=== PATIENT | male | born 2000 | race Caucasian/White ===

== ENCOUNTER 2022-06-12 12:45 | Outpatient (CLI) | payer OTHER | END 2022-06-12 12:46 | disposition home or self-care (01) | LOC: CSHLAB 12:45 | PROVIDERS: ATTEND Podiatrist Foot & Ankle Surgery | DX: Z20.822 Contact with and (suspected) exposure to COVID-19 (principal); M19.071 Primary osteoarthritis, right ankle and foot | CPT/HCPCS: 87811 ==

== ENCOUNTER 2022-06-15 12:06 | Day surgery (SDC) | payer OTHER ==
[2022-06-13 10:49] VITALS: BMI 28.1
[~2022-06-15 12:06] MED LIST: Bupivacaine PF 0.5% 30 ML VIAL ONE; Neomycin-Polymyxin 1 ML AMP ONE
[2022-06-15] MEDS ORDERED: Lidocaine 1% PF 5 ML VIAL ONE (12:56)
[2022-06-15] MEDS ORDERED: PROPOFOL 20 ML ONE (12:56)
[2022-06-15] MEDS ORDERED: Fentanyl 250 MCG/5 ML VIAL ONE (13:54)
[2022-06-15] MEDS ORDERED: CEFAZOLIN 2 GM VIAL ONE (13:58)
[2022-06-15] MEDS ORDERED: Ondansetron PF 4 MG/2 ML Vial ONE (14:30)
[2022-06-15] MEDS ORDERED: Dexamethasone 4 mg/ml Vial ONE (14:30)
[2022-06-15] MEDS ORDERED: ePHEDrine Sulfate 50 MG/10 ML VIAL ONE (14:40)
== END 2022-06-15 16:10 | disposition home or self-care (01) ==
LOC: CSHSDC 12:06
PROVIDERS: ATTEND Podiatrist Foot & Ankle Surgery
PROC: 0SGP0JZ Fusion of Right Toe Phalangeal Joint with Synthetic Substitute, Open Approach (ICD-10-PCS; principal; 2022-06-15)
DX: M19.171 Post-traumatic osteoarthritis, right ankle and foot (principal); S92.414A Nondisplaced fracture of proximal phalanx of right great toe, initial encounter for closed fracture; S93.521A Sprain of metatarsophalangeal joint of right great toe, initial encounter; M79.671 Pain in right foot; Z79.899 Other long term (current) drug therapy; Z20.822 Contact with and (suspected) exposure to COVID-19; X58.XXXA Exposure to other specified factors, initial encounter
CPT/HCPCS: 76000; C1713; C1769; J0690; J1100; J2405; J2704; J3010; S0020

== ENCOUNTER 2022-09-10 07:40 | Day surgery (SDC) | payer OTHER ==
[2022-09-07 11:12] VITALS: BMI 28.1
[2022-09-10] MEDS ORDERED: Bupivacaine PF 0.5% 30 ML VIAL ONE (09:22)
[2022-09-10] MEDS ORDERED: Lidocaine 1% PF 5 ML VIAL ONE (09:23)
[2022-09-10] MEDS ORDERED: Neomycin-Polymyxin 1 ML AMP ONE (09:23)
[2022-09-10] MEDS ORDERED: PROPOFOL 20 ML ONE (09:23)
[2022-09-10] MEDS ORDERED: Fentanyl 100 MCG/2 ML VIAL ONE (09:23)
[2022-09-10] MEDS ORDERED: Midazolam HCl 2 mg/2 ml Vial ONE (09:48)
[2022-09-10] MEDS ORDERED: CEFAZOLIN 2 GM VIAL ONE (09:51)
[2022-09-10] MEDS ORDERED: Dexamethasone 20 MG/5 ML VIAL ONE (10:11)
[2022-09-10] MEDS ORDERED: Ondansetron PF 4 MG/2 ML Vial ONE (11:30)
== END 2022-09-10 12:50 | disposition home or self-care (01) ==
LOC: CSHSDC 07:40
PROVIDERS: ATTEND Podiatrist Foot & Ankle Surgery
PROC: 0SGP0JZ Fusion of Right Toe Phalangeal Joint with Synthetic Substitute, Open Approach (ICD-10-PCS; principal; 2022-09-10)
DX: M96.0 Pseudarthrosis after fusion or arthrodesis (principal)
CPT/HCPCS: C1713; J1100; J2250; J2405; J2704; J3010; S0020